=== PATIENT | male | born 1945 | race Caucasian/White ===

== ENCOUNTER 2016-09-04 14:43 | Emergency (ER) | payer OTHER, MEDICARE | END 2016-09-04 16:15 | disposition home or self-care (01) | LOC: ER 14:43 | DX: R19.7 Diarrhea, unspecified (principal); R11.0 Nausea; I10 Essential (primary) hypertension; E78.00 Pure hypercholesterolemia, unspecified; Z87.891 Personal history of nicotine dependence; Z79.899 Other long term (current) drug therapy | CPT/HCPCS: 36415; 87507; 96361; 96374; 96375; J0360 ==